=== PATIENT | female | born 1965 | race Caucasian/White ===

== ENCOUNTER 2017-01-02 23:13 | Emergency (ER) | payer OTHER ==
[~2017-01-02 23:13] MED LIST: K-DUR20 MEQ PO; LEVAQUIN500 MG PO; LOMOTIL1 EACH PO; NEURONTIN600 MG PO; REMERON30 MG PO; SEROQUEL50 MG PO; SODIUM BICARBO650 M1 PO; SUBOXONE 12 MG1 EACH PO
[2017-01-02 23:41] LABS: BILIRUBIN NEGATIVE (NEGATIVE); BLOOD NEGATIVE Ery/uL (NEGATIVE); CLARITY CLEAR (CLEAR); COLOR YELLOW (YELLOW); GLUCOSE (U) NORMAL (NORMAL); KETONE (U) NEGATIVE (NEGATIVE); LEUKOCYTES NEGATIVE Leu/uL (NEGATIVE); NITRITE NEGATIVE (NEGATIVE); PROTEIN TRACE (LOW) mg/dL (NEGATIVE); UROBILINOGEN 0.2 mg/dL (0.2-1.0); pH 6.5 (5.0-9.0)
[2017-01-02 23:52] LABS: BACTERIA TRACE; SQUAMOUS EPITHELIAL CELLS RARE; URINARY RBC RARE; URINARY WBC RARE
[2017-01-03 00:02] LABS: BASOPHIL 0.2 % (0-2); EOSINOPHIL 2.6 % (0-5); HCT 28.8 % (37.0-47.0); HGB 9.5 g/dl (12.5-16.0); LYMPHOCYTE 18.1 % (15-48); MCH 24.9 pg (25.0-31.0); MCV 75.4 fL (78.0-100.0); MONOCYTE 5.6 % (0-12); MPV 10.9 fL (6.0-9.5); NEUTROPHIL 73.5 % (41-80); PLT 403 K/uL (150-400); RBC 3.82 M/uL (4.20-5.40); RDW 16.1 % (11.5-14.0); WBC 13.6 K/uL (4.0-10.5)
[2017-01-03 00:24] LABS: ALBUMIN 3.7 g/dL (3.5-5.0); BILIRUBIN - TOTAL 0.2 mg/dL (0.1-1.0); CREATININE 0.6 mg/dL (0.5-1.0); GLOBULIN (CALCULATION) 2.5 g/dL (2.2-4.2); TOTAL PROTEIN 6.2 g/dL (6.4-8.3)
== END 2017-01-03 03:13 | disposition left against medical advice (07) ==
LOC: FER 23:13
PROVIDERS: Emergency Medicine
DX: K85.90 Acute pancreatitis without necrosis or infection, unspecified (principal); I10 Essential (primary) hypertension; F17.210 Nicotine dependence, cigarettes, uncomplicated; Z90.49 Acquired absence of other specified parts of digestive tract; Z90.710 Acquired absence of both cervix and uterus
CPT/HCPCS: 36415; 74022; 80053; 81001; 82150; 83690; 85025; J1885; Q9967